=== PATIENT | male | born 1945 | race Caucasian/White ===

== ENCOUNTER 2017-11-23 09:26 | Inpatient (IN) ==
--- NOTE | 2017-11-23 09:47 | Emergency Department Note ---
Disposition Clinical Impression: Acute pancreatitis Qualifiers: Pancreatitis type: unspecified pancreatitis type Acute pancreatitis complication: unspecified Qualified Code(s): K85.90 - Acute pancreatitis without necrosis or infection, unspecified Disposition: Admitted As Inpatient Condition: Good Time of Disposition: 13:24 General Adult HPI - General Chief complaint: ED Abdominal Pain Stated complaint: abd pain/cramps Time Seen by Provider: 11/23/17 09:31 Nursing Notes Reviewed: Yes Vital Signs Reviewed: Yes - History of Present Illness HPI Narrative: Patient complaining of a cramping sensation to his abdomen. Started this morning. Does report intermittent constipation over the past 2-3 months. This is after starting a Weight Watchers diet. Pain Scale: 8 - Related Data Home Medications Medication Instructions Recorded Confirmed Amlodipine Besylate 10 mg PO DAILY 11/23/17 11/23/17 Darifenacin Hydrobromide 15 mg PO DAILY 11/23/17 11/23/17 [Darifenacin ER] Lisinopril-HCTZ 20-12.5 [Prinzide 1 tab PO DAILY 11/23/17 11/23/17 20-12.5] Metoprolol Succinate [Toprol Xl] 50 mg PO DAILY 11/23/17 11/23/17 Omeprazole [PriLOSEC] 40 mg PO DAILY 11/23/17 11/23/17 Tamsulosin [Flomax] 0.8 mg PO DAILY 11/23/17 11/23/17 Allergies Allergy/AdvReac Type Severity Reaction Status Date / Time No Known Allergies Allergy Verified 11/23/17 09:29 All systems ED: reviewed and negative except as stated. Constitutional: Denies: fever, chills ENT ED: Denies: congestion Cardiovascular: Denies: chest pain, palpitations, syncope Respiratory: Denies: cough, dyspnea Gastrointestinal: Reports: abdominal pain, nausea, constipation (Last bowel movement was this morning.). Denies: vomiting, diarrhea, hematemesis, melena, hematochezia Genitourinary: Denies: urgency, dysuria, frequency, hematuria Musculoskeletal: Denies: back pain, neck pain Integumentary: Denies: rash, abrasion Neurological: Denies: headache, weakness Past Medical History - Past Medical History Attestation: Yes The following information was validated with the patient. Source: patient Physical Exam - General Limitations: no limitations General appearance: alert, in no apparent distress - Head Head exam: atraumatic, normocephalic, normal inspection - Eye Eye exam: Present: normal appearance, PERRL, EOMI - ENT ENT exam: normal exam, normal oropharynx, mucous membranes moist - Neck Neck exam: Present: normal inspection, full ROM, trachea midline - Chest Chest inspection: Present: normal inspection, symmetric chest wall rise - Respiratory Respiratory exam: Present: normal lung sounds bilaterally. Absent: respiratory distress, accessory muscle use - Cardiovascular Cardiovascular exam: Present: regular rate, normal rhythm, normal heart sounds - Abdominal Exam Abdominal exam: Present: soft, tenderness (Diffusely), distention (Mild). Absent: guarding, rebound, rigidity, organomegaly - Extremities Exam Extremities exam: Present: normal inspection, full ROM, normal capillary refill. Absent: tenderness, pedal edema - Back Exam Back exam: Present: normal inspection, full ROM. Absent: tenderness - Neurological Exam Neurological exam: Present: alert, oriented X3 - Psychiatric Psychiatric exam: Present: normal affect, normal mood - Skin Skin exam: Present: warm, dry, intact, normal color. Absent: rash, cyanosis Course Course Narrative: Male patient presenting to the emergency room complaining of abdominal cramping that began this morning. Patient states he did have a bowel movement this morning that was hard in nature however was a decent amount. States this did not help with his abdominal pain. Has been on Weight Watchers for the past 23 weeks and states that he has had issues with constipation since then. He does report nausea but denies any vomiting. No fevers or chills. Denies any chest pain or shortness breath. Does report increase in abdominal distention as well as a generalized ache all over his abdomen. On exam his lung sounds are clear heart tones are normal abdomen is mildly distended but not rigid not scaphoid. He does complain of pain to palpation of all of his quadrants. We will get basic lab workup on patient as well as get a CT of patient's abdomen. - Reevaluation(s) Reevaluation #1: Pt has acute pancreatitis. This is shown on CT. Patient also has an elevated lipase. He also has elevated liver enzymes. Patient is resting comfortably. He states that he was still in pain so we added fentanyl as well as Zofran. He does occasionally complain of being "dizzy whenever I did ask him to describe the she states that she just an aching sensation in his abdomen that comes up. He denies any rotational component. He denies feeling of syncope. He is well- appearing we will admit to the hospital. He is agreeable to this. - Consultations Consultation #1: Dr Batres Accepted Pt in stable condition. Time: 11:51 Vital Signs Temperature 97.6 F 11/23/17 09:27 Pulse Rate 54 11/23/17 09:27 Respiratory Rate 16 11/23/17 09:27 Blood Pressure 145/74 11/23/17 09:27 O2 Sat by Pulse Oximetry 93 11/23/17 09:27 Temperature 97.5 F L 11/23/17 12:56 Pulse Rate 58 11/23/17 12:56 Respiratory Rate 16 11/23/17 12:56 Blood Pressure 159/79 11/23/17 12:56 O2 Sat by Pulse Oximetry 96 11/23/17 12:56 Oxygen Delivery Oxygen Delivery Room Air Medical Decision Making - Medical Records Medical records reviewed: Yes I reviewed the patient's medical records. - Lab Data Lab results reviewed: Yes I reviewed the patient's lab results. Result diagrams: 11/23/17 10:00 11/23/17 10:00 Lab Results 11/23/17 11/23/17 11/23/17 Range/Units 10:00 10:00 10:00 WBC 13.8 H (4.3-11.1) K/mcL RBC 4.28 (4.19-5.50) M/mcL Hgb 13.7 (12.9-16.9) g/dL Hct 40.1 (37.5-50.1) % MCV 93.7 (83.0-100.0) fL MCH 32.0 (28.0-33.3) pg MCHC 34.2 (31.6-35.5) g/dL RDW 13.4 (11.5-14.5) % Plt Count 185 (140-400) K/mcL MPV 11.0 (9.4-12.4) fL Immature Gran % 0.4 (0-4) % Seg Neutrophils % 79.3 % Lymphocytes % 11.0 % Monocytes % 8.1 % Eosinophils % 0.8 % Basophils % 0.4 % Neutrophils # 10.9 H (1.6-8.9) K/mcL Lymphocytes # 1.5 (0.6-4.6) K/mcL Monocytes # 1.1 (0.0-1.3) K/mcL Eosinophils # 0.1 (0.0-0.6) K/mcL Basophils # 0.1 (0.0-0.2) K/mcL Sodium 140 (136-145) mEq/L Potassium 4.1 (3.5-5.1) mEq/L Chloride 106 (98-107) mEq/L Carbon Dioxide 27 (23-29) mEq/L BUN 19 (8-23) mg/dL Creatinine 1.10 (0.70-1.30) mg/dL Est GFR ( Amer) > 60 (> 60) Est GFR (Non-Af Amer) > 60 (> 60) BUN/Creatinine Ratio 17 (6-26) Glucose 164 H (70-105) mg/dL Calculated Osmolality 296 (280-300) Lactic Acid 1.1 (0.5-2.2) mmol/L Calcium 8.9 (8.6-10.3) mg/dL Total Bilirubin 0.8 (0.3-1.0) mg/dL Direct Bilirubin 0.5 H (0.0-0.2) mg/dL Indirect Bilirubin 0.3 (0.0-1.2) mg/dL AST 106 H (13-39) Units/L ALT 60 H (7-52) Units/L Alkaline Phosphatase 89 (34-104) Units/L Serum Total Protein 6.4 (6.4-8.9) g/dL Albumin 3.9 (3.5-5.7) g/dL Globulin 2.5 (2.4-3.5) g/dL Albumin/Globulin Ratio 1.6 (1.1-2.2) Lipase > 1800 H (11-82) Units/L Urine Color (Yellow) Urine Clarity (Clear) Urine pH (5.0-8.0) pH Units Ur Specific [place] (1.010-1.025) Urine Protein (Neg-Trace) mg/dL Urine Glucose (UA) (Normal) mg/dL Urine Ketones (Negative) mg/dL Urine Blood (Negative) Urine Nitrite (Negative) Urine Bilirubin (Negative) Urine Urobilinogen (Normal) mg/dL Ur Leukocyte Esterase (Negative) Urine Microscopic RBC (0-3) per hpf Urine Microscopic WBC (0-3) per hpf Ur Squamous Epith Cells (None-Few) per lpf Urine Bacteria (None-Few) per hpf Hyaline Casts (None-Few) per lpf Ur Culture Indicated? (NO) 11/23/17 Range/Units 10:05 WBC (4.3-11.1) K/mcL RBC (4.19-5.50) M/mcL Hgb (12.9-16.9) g/dL Hct (37.5-50.1) % MCV (83.0-100.0) fL MCH (28.0-33.3) pg MCHC (31.6-35.5) g/dL RDW (11.5-14.5) % Plt Count (140-400) K/mcL MPV (9.4-12.4) fL Immature Gran % (0-4) % Seg Neutrophils % % Lymphocytes % % Monocytes % % Eosinophils % % Basophils % % Neutrophils # (1.6-8.9) K/mcL Lymphocytes # (0.6-4.6) K/mcL Monocytes # (0.0-1.3) K/mcL Eosinophils # (0.0-0.6) K/mcL Basophils # (0.0-0.2) K/mcL Sodium (136-145) mEq/L Potassium (3.5-5.1) mEq/L Chloride (98-107) mEq/L Carbon Dioxide (23-29) mEq/L BUN (8-23) mg/dL Creatinine (0.70-1.30) mg/dL Est GFR ( Amer) (> 60) Est GFR (Non-Af Amer) (> 60) BUN/Creatinine Ratio (6-26) Glucose (70-105) mg/dL Calculated Osmolality (280-300) Lactic Acid (0.5-2.2) mmol/L Calcium (8.6-10.3) mg/dL Total Bilirubin (0.3-1.0) mg/dL Direct Bilirubin (0.0-0.2) mg/dL Indirect Bilirubin (0.0-1.2) mg/dL AST (13-39) Units/L ALT (7-52) Units/L Alkaline Phosphatase (34-104) Units/L Serum Total Protein (6.4-8.9) g/dL Albumin (3.5-5.7) g/dL Globulin (2.4-3.5) g/dL Albumin/Globulin Ratio (1.1-2.2) Lipase (11-82) Units/L Urine Color Yellow (Yellow) Urine Clarity Cloudy A (Clear) Urine pH 6.0 (5.0-8.0) pH Units Ur Specific [place] 1.018 (1.010-1.025) Urine Protein Negative (Neg-Trace) mg/dL Urine Glucose (UA) Normal (Normal) mg/dL Urine Ketones Negative (Negative) mg/dL Urine Blood Negative (Negative) Urine Nitrite Negative (Negative) Urine Bilirubin Negative (Negative) Urine Urobilinogen Normal (Normal) mg/dL Ur Leukocyte Esterase Negative (Negative) Urine Microscopic RBC 0-3 (0-3) per hpf Urine Microscopic WBC 0-3 (0-3) per hpf Ur Squamous Epith Cells None Seen (None-Few) per lpf Urine Bacteria Few (None-Few) per hpf Hyaline Casts None Seen (None-Few) per lpf Ur Culture Indicated? NO (NO) - Radiology Data Radiology results reviewed: Yes I reviewed the patient's radiology results. Abdomen/Pelvis CT 11/23/17 09:54 IMPRESSION: 1. Acute pancreatitis with no evidence of pseudocyst formation or pancreatic duct obstruction. Cannot assess for pancreatic necrosis without IV contrast 2. Colonic diverticulosis 3. Prostatic enlargement D/ / Demetris Bryan MD / Demetris Bryan MD Interpreting Provider: Demetris Bryan MD - EKG Data EKG #1 EKG attestation: Yes I reviewed and interpreted this EKG. EKG results narrative: Sinus rhythm at a rate of 52. [place] interval is 166. QRS duration is 94. QT is 441. QTC is 420. Patient is sinus bradycardia. No signs of acute ischemia. No significant change from previous EKG dated 02/08/2007
[2017-11-23 10:24] LABS: Basophils # 0.1 K/mcL (0.0-0.2); Basophils % 0.4 %; Eosinophils # 0.1 K/mcL (0.0-0.6); Eosinophils % 0.8 %; Hematocrit 40.1 % (37.5-50.1); Hemoglobin 13.7 g/dL (12.9-16.9); Immature Granulocytes % 0.4 % (0-4); Lymphocytes # 1.5 K/mcL (0.6-4.6); Mean Corpuscular HGB Conc 34.2 g/dL (31.6-35.5); Mean Corpuscular Volume 93.7 fL (83.0-100.0); Monocytes # 1.1 K/mcL (0.0-1.3); Monocytes % 8.1 %; Neutrophils # 10.9 K/mcL (1.6-8.9); Platelet Count 185 K/mcL (140-400); Red Blood Count 4.28 M/mcL (4.19-5.50); Red Cell Distribution Width 13.4 % (11.5-14.5); Segmented Neutrophils % 79.3 %
[2017-11-23 10:34] LABS: Bilirubin,Urine Negative (Negative); Blood,Urine Negative (Negative); Clarity,Urine Cloudy (Clear); Color,Urine Yellow (Yellow); Glucose,Urine (UA) Normal (Normal); Ketones,Urine Negative (Negative); Leukocyte Esterase,Urine Negative (Negative); Nitrite,Urine Negative (Negative); Protein,Urine Negative (Neg-Trace); Specific Gravity,Urine 1.018 (1.010-1.025); Urobilinogen,Urine Normal (Normal)
[2017-11-23 10:37] LABS: Hyaline Casts,Urine None Seen per lpf (None-Few); RBC,Urine 0-3 per hpf (0-3); Squamous Epithelial Cell,Urine None Seen per lpf (None-Few); WBC,Urine 0-3 per hpf (0-3)
[2017-11-23 10:54] LABS: Bacteria,Urine Few per hpf (None-Few)
[2017-11-23 10:55] LABS: Alanine Aminotransferase 60 Units/L (7-52); Albumin 3.9 g/dL (3.5-5.7); Albumin/Globulin Ratio 1.6 (1.1-2.2); Alkaline Phosphatase 89 Units/L (34-104); Aspartate Amino Transferase 106 Units/L (13-39); BUN/Creatinine Ratio 17 (6-26); Bilirubin,Direct 0.5 mg/dL (0.0-0.2); Bilirubin,Indirect 0.3 mg/dL (0.0-1.2); Bilirubin,Total 0.8 mg/dL (0.3-1.0); Blood Urea Nitrogen 19 mg/dL (8-23); Calcium 8.9 mg/dL (8.6-10.3); Carbon Dioxide 27 mEq/L (23-29); Chloride 106 mEq/L (98-107); Globulin 2.5 g/dL (2.4-3.5); Glucose 164 mg/dL (70-105); Osmolality,Calculated 296 (280-300); Potassium 4.1 mEq/L (3.5-5.1); Sodium 140 mEq/L (136-145); Total Protein 6.4 g/dL (6.4-8.9); eGFR For African Americans > 60 (> 60); eGFR For Non-African Americans > 60 (> 60)
[2017-11-23] MEDS ORDERED: 0.9 % Sodium Chloride 1,000 ML IVC ONE (11:02)
[2017-11-23] MEDS ORDERED: *HR* FentaNYL (PF) 100 MCG/2 ML VIAL IVP ONE (11:05)
[2017-11-23] MEDS ORDERED: Ondansetron 4 MG/2 ML VIAL IVP ONE (11:05)
[2017-11-23 11:11] LABS: Lipase > 1800 Units/L (11-82)
--- NOTE | 2017-11-23 12:48 | Emergency Department Note ---
Disposition Clinical Impression: Acute pancreatitis Clinical Impression: (Ruled Out): Acute alcoholic pancreatitis Disposition: Admitted As Inpatient Time of Disposition: 12:02 Abdominal Pain HPI - General Chief Complaint: ED Abdominal Pain Stated Complaint: abd pain/cramps Time Seen by Provider: 11/23/17 09:31 Nursing Notes Reviewed: Yes Vital Signs Reviewed: Yes - History of Present Illness HPI Narrative: 72-year-old male presents ED because of abdominal pain. He has had pain throughout the morning and complains of a bloated sensation. Pain is mostly upper abdomen. He has issues with constipation recently. No diarrhea. No fevers. No dysuria or hematuria. No chest pain or dyspnea. Last meal was yesterday evening, ate pizza Onset (ago): hour(s) Consistency: constant Location: epigastric Pain Severity: moderate Pain Scale: 0 Quality: fullness, sharp Radiation: none Migration to: no migration Improves with: nothing Worsens with: nothing - Related Data Home Medications Medication Instructions Recorded Confirmed Amlodipine Besylate 10 mg PO DAILY 11/23/17 11/23/17 Darifenacin Hydrobromide 15 mg PO DAILY 11/23/17 11/23/17 [Darifenacin ER] Lisinopril-HCTZ 20-12.5 [Prinzide 1 tab PO DAILY 11/23/17 11/23/17 20-12.5] Metoprolol Succinate [Toprol Xl] 50 mg PO DAILY 11/23/17 11/23/17 Omeprazole [PriLOSEC] 40 mg PO DAILY 11/23/17 11/23/17 Tamsulosin [Flomax] 0.8 mg PO DAILY 11/23/17 11/23/17 Allergies Allergy/AdvReac Type Severity Reaction Status Date / Time No Known Allergies Allergy Verified 11/23/17 09:29 All systems ED: reviewed and negative except as stated. Constitutional: Denies: fever Cardiovascular: Denies: chest pain Respiratory: Denies: dyspnea Gastrointestinal: Reports: abdominal pain, nausea, constipation. Denies: diarrhea Genitourinary: Denies: urgency, dysuria Musculoskeletal: Denies: back pain Abdominal Pain PMH - Past Medical History Medical history: Reports: hypertension Male Surgical History: Reports: non-contributory Psychiatric history: Reports: no psych history - Social History Smoking status: Former smoker Alcohol use: Reports: occasionally Drug use: Reports: none Physical Exam - General Limitations: no limitations - Head Head exam: atraumatic, normocephalic - Eye Eye exam: Present: normal appearance - ENT ENT exam: normal exam, normal oropharynx - Neck Neck exam: Present: normal inspection - Respiratory Respiratory exam: Present: normal lung sounds bilaterally - Cardiovascular Cardiovascular exam: Present: regular rate, normal rhythm - Abdominal Exam Abdominal exam: Present: tenderness Abdominal tenderness: Present: LUQ, epigastrium, moderate - Extremities Exam Extremities exam: Present: normal inspection - Back Exam Back exam: Present: normal inspection - Neurological Exam Neurological exam: Present: alert, oriented X3 - Psychiatric Psychiatric exam: Present: normal affect - Skin Skin exam: Present: warm, dry Course - Reevaluation(s) Reevaluation #1: CT of the abdomen and lab work consistent with acute pancreatiitis. He is kept NPO, treated symptomatically and will be admitted for further treatment and workup. Time: 12:51 Vital Signs Temperature 97.6 F 11/23/17 09:27 Pulse Rate 54 11/23/17 09:27 Respiratory Rate 16 11/23/17 09:27 Blood Pressure 145/74 11/23/17 09:27 O2 Sat by Pulse Oximetry 93 11/23/17 09:27 Temperature 97.6 F 11/23/17 09:54 Pulse Rate 54 11/23/17 09:54 Respiratory Rate 16 11/23/17 12:31 Blood Pressure 156/81 11/23/17 12:31 O2 Sat by Pulse Oximetry 93 11/23/17 09:54 Oxygen Delivery Oxygen Delivery Room Air Abdominal Pain - Lab Data Result diagrams: 11/23/17 10:00 11/23/17 10:00 Lab Results 11/23/17 11/23/17 11/23/17 Range/Units 10:00 10:00 10:00 WBC 13.8 H (4.3-11.1) K/mcL RBC 4.28 (4.19-5.50) M/mcL Hgb 13.7 (12.9-16.9) g/dL Hct 40.1 (37.5-50.1) % MCV 93.7 (83.0-100.0) fL MCH 32.0 (28.0-33.3) pg MCHC 34.2 (31.6-35.5) g/dL RDW 13.4 (11.5-14.5) % Plt Count 185 (140-400) K/mcL MPV 11.0 (9.4-12.4) fL Immature Gran % 0.4 (0-4) % Seg Neutrophils % 79.3 % Lymphocytes % 11.0 % Monocytes % 8.1 % Eosinophils % 0.8 % Basophils % 0.4 % Neutrophils # 10.9 H (1.6-8.9) K/mcL Lymphocytes # 1.5 (0.6-4.6) K/mcL Monocytes # 1.1 (0.0-1.3) K/mcL Eosinophils # 0.1 (0.0-0.6) K/mcL Basophils # 0.1 (0.0-0.2) K/mcL Sodium 140 (136-145) mEq/L Potassium 4.1 (3.5-5.1) mEq/L Chloride 106 (98-107) mEq/L Carbon Dioxide 27 (23-29) mEq/L BUN 19 (8-23) mg/dL Creatinine 1.10 (0.70-1.30) mg/dL Est GFR ( Amer) > 60 (> 60) Est GFR (Non-Af Amer) > 60 (> 60) BUN/Creatinine Ratio 17 (6-26) Glucose 164 H (70-105) mg/dL Calculated Osmolality 296 (280-300) Lactic Acid 1.1 (0.5-2.2) mmol/L Calcium 8.9 (8.6-10.3) mg/dL Total Bilirubin 0.8 (0.3-1.0) mg/dL Direct Bilirubin 0.5 H (0.0-0.2) mg/dL Indirect Bilirubin 0.3 (0.0-1.2) mg/dL AST 106 H (13-39) Units/L ALT 60 H (7-52) Units/L Alkaline Phosphatase 89 (34-104) Units/L Serum Total Protein 6.4 (6.4-8.9) g/dL Albumin 3.9 (3.5-5.7) g/dL Globulin 2.5 (2.4-3.5) g/dL Albumin/Globulin Ratio 1.6 (1.1-2.2) Lipase > 1800 H (11-82) Units/L Urine Color (Yellow) Urine Clarity (Clear) Urine pH (5.0-8.0) pH Units Ur Specific [place] (1.010-1.025) Urine Protein (Neg-Trace) mg/dL Urine Glucose (UA) (Normal) mg/dL Urine Ketones (Negative) mg/dL Urine Blood (Negative) Urine Nitrite (Negative) Urine Bilirubin (Negative) Urine Urobilinogen (Normal) mg/dL Ur Leukocyte Esterase (Negative) Urine Microscopic RBC (0-3) per hpf Urine Microscopic WBC (0-3) per hpf Ur Squamous Epith Cells (None-Few) per lpf Urine Bacteria (None-Few) per hpf Hyaline Casts (None-Few) per lpf Ur Culture Indicated? (NO) 11/23/17 Range/Units 10:05 WBC (4.3-11.1) K/mcL RBC (4.19-5.50) M/mcL Hgb (12.9-16.9) g/dL Hct (37.5-50.1) % MCV (83.0-100.0) fL MCH (28.0-33.3) pg MCHC (31.6-35.5) g/dL RDW (11.5-14.5) % Plt Count (140-400) K/mcL MPV (9.4-12.4) fL Immature Gran % (0-4) % Seg Neutrophils % % Lymphocytes % % Monocytes % % Eosinophils % % Basophils % % Neutrophils # (1.6-8.9) K/mcL Lymphocytes # (0.6-4.6) K/mcL Monocytes # (0.0-1.3) K/mcL Eosinophils # (0.0-0.6) K/mcL Basophils # (0.0-0.2) K/mcL Sodium (136-145) mEq/L Potassium (3.5-5.1) mEq/L Chloride (98-107) mEq/L Carbon Dioxide (23-29) mEq/L BUN (8-23) mg/dL Creatinine (0.70-1.30) mg/dL Est GFR ( Amer) (> 60) Est GFR (Non-Af Amer) (> 60) BUN/Creatinine Ratio (6-26) Glucose (70-105) mg/dL Calculated Osmolality (280-300) Lactic Acid (0.5-2.2) mmol/L Calcium (8.6-10.3) mg/dL Total Bilirubin (0.3-1.0) mg/dL Direct Bilirubin (0.0-0.2) mg/dL Indirect Bilirubin (0.0-1.2) mg/dL AST (13-39) Units/L ALT (7-52) Units/L Alkaline Phosphatase (34-104) Units/L Serum Total Protein (6.4-8.9) g/dL Albumin (3.5-5.7) g/dL Globulin (2.4-3.5) g/dL Albumin/Globulin Ratio (1.1-2.2) Lipase (11-82) Units/L Urine Color Yellow (Yellow) Urine Clarity Cloudy A (Clear) Urine pH 6.0 (5.0-8.0) pH Units Ur Specific [place] 1.018 (1.010-1.025) Urine Protein Negative (Neg-Trace) mg/dL Urine Glucose (UA) Normal (Normal) mg/dL Urine Ketones Negative (Negative) mg/dL Urine Blood Negative (Negative) Urine Nitrite Negative (Negative) Urine Bilirubin Negative (Negative) Urine Urobilinogen Normal (Normal) mg/dL Ur Leukocyte Esterase Negative (Negative) Urine Microscopic RBC 0-3 (0-3) per hpf Urine Microscopic WBC 0-3 (0-3) per hpf Ur Squamous Epith Cells None Seen (None-Few) per lpf Urine Bacteria Few (None-Few) per hpf Hyaline Casts None Seen (None-Few) per lpf Ur Culture Indicated? NO (NO) Attestation Statement - Attestation Attestation: n I examined this patient and my medical decision-making was reviewed with the Resident Physician. I agree with the documented findings, disposition and treatment plan as described except to the extent set forth below.
[2017-11-23] MEDS ORDERED: Naloxone 0.4 MG/ML INJ IVP PRN (13:17)
[2017-11-23] MEDS ORDERED: Ondansetron 4 MG/2 ML VIAL IVP PRN (13:25)
[2017-11-23] MEDS ORDERED: *HR* FentaNYL (PF) 100 MCG/2 ML VIAL IVP PRN (13:26)
[2017-11-23] MEDS ORDERED: 0.9 % Sodium Chloride 1,000 ML IVC SCH (13:30)
--- NOTE | 2017-11-23 13:50 | Internal Med History&Physical ---
Addendum entered and electronically signed by Heaven Vogt 11/23/17 14:14: Original Note: <Heaven Vogt - Last Filed: 11/23/17 13:38> Date of Encounter: 11/23/17 Time of Encounter: 13:38 Internal Medicine - H&P: HPI Chief complaint: Acute Pancreatitis Admitted From: Home Plans for Post Hospital Care: Home History of present illness: Mr. Morgan is a 72 year old male with hx of HTN, appendectomy, enlarged prostate , and tonsillitis. The patient woke up today with generalized abdominal pain that persisted. He indicated that he was driving somewhere else, the abdominal cramping became so intense he pulled over and came into the ED. He indicated that he has never had these problems in the past. He reports that he drinks a glass of wine three times per week. He reported having problems with constipation for the past 23 weeks while he was doing a weight watchers diet. He thinks the increase in protein may have been causing him problems with his digestive system. The CT showed: acute pancreatitis with no evidence of pseudocyst formation or pancreatic duct obstruction, colonic diverticulitis and prostate enlargement. WBC is 13.7, lipase is > 1800. The patient is currently pain-free after a dose of fentanyl in the ED. Patient will remain npo, and maintain IVF's and control pain. Past Med Surg Social Fam HX - Past Medical History Medical history: hypertension Psychiatric history: no psych history - Social History Smoking Status: Former smoker Alcohol use: occasionally Drug use: none Internal Medicine - H&P: Meds Amlodipine Besylate 10 mg PO DAILY 11/23/17 [History] Darifenacin Hydrobromide [Darifenacin ER] 15 mg PO DAILY 11/23/17 [History] Lisinopril-HCTZ 20-12.5 [Prinzide 20-12.5] 1 tab PO DAILY 11/23/17 [History] Metoprolol Succinate [Toprol Xl] 50 mg PO DAILY 11/23/17 [History] Omeprazole [PriLOSEC] 40 mg PO DAILY 11/23/17 [History] Tamsulosin [Flomax] 0.8 mg PO DAILY 11/23/17 [History] 3 Allergy/AdvReac Type Severity Reaction Status Date / Time No Known Allergies Allergy Verified 11/23/17 09:29 All Systems PM: A 10-system review of systems was performed and is negative for pertinent findings except as documented above in the HPI. - Constitutional Constitutional: no chills, no fever(s), no night sweats - EENT Eyes: no change in vision, no discharge, no pain, no photophobia Ears: no ear discharge, no ear pain, no tinnitus Nose, mouth and throat: no dysphagia, no nasal discharge, no neck pain, no sore throat - Cardiovascular Cardiovascular ROS IM: no chest pain, no diaphoresis, no dyspnea, no lightheadedness, no palpitations, no syncope - Respiratory Respiratory: no cough, no dyspnea, no wheezing, no excessive phlegm production - Gastrointestinal Gastrointestinal: abdominal pain (Generalized), constipation, nausea, no diarrhea, no hematemesis, no hematochezia, no melena, no vomiting - Musculoskeletal Musculoskeletal ROS IM: no numbness, no tingling - Integumentary Integumentary IM: no rash, no unusual bruising - Neurological Neurological ROS: no confusion, no convulsions, no focal weakness, no numbness, no tingling, no tremor(s) - Hematologic/Lymphatic Hematologic/Lymphatic: no easy bruising - Constitutional Vitals: Temp Pulse Resp BP Pulse Ox 97.5 F L 58 16 159/79 96 11/23/17 12:56 11/23/17 12:56 11/23/17 12:56 11/23/17 12:56 11/23/17 12:56 General appearance: Present: A&O X 3, loss of weight (Weight Watchers), answers questions appropriately - Head Head exam: Present: atraumatic, normocephalic - Eye Eye exam: Present: PERRL, conjuntiva pink, sclera anicteric Pupils: Present: PERRL - Neck Neck exam general surgery: Present: supple, trachea midline. Absent: lymphadenopathy - Respiratory Respiratory exam: Present: CTAB. Absent: accessory muscle use, rales, rhonchi, wheezes - Cardiovascular Cardiovascular exam: Present: RRR, +S1, +S2. Absent: diastolic murmur, gallop, rubs, systolic murmur - GI/Abdominal GI/Abdominal exam: Present: normal bowel sounds, soft, no peritoneal signs. Absent: distended, tenderness - Extremities Exam Extremities exam: Present: warm, radial pulses palpable and symmetrical. Absent : calf tenderness, cyanotic, pedal edema - Neurological Exam Neurological exam: Present: CN II-XII intact, oriented X3, no focal deficits. Absent: pronater drift, facial droop, speech deficit - Skin Skin exam: Present: dry, intact Internal Med - H&P Results - Labs CBC & Chem 7: 11/23/17 10:00 11/23/17 10:00 - Assessment and plan (1) Acute pancreatitis Current Visit: Yes Status: Acute Assessment and plan: Pancreatitis etiology is unknown. The patient indicated recent changes in diet, which includes an increase in protein. He also reports drinking 3 glasses of wine daily. Continue IVF's Pain control- moderate pain-Toradol 15 mg iv q6h prn Severe pain-fentanyl iv q6h prn NPO Monitor daily labs Qualifiers: Pancreatitis type: unspecified pancreatitis type Acute pancreatitis complication: unspecified Qualified Code(s): K85.90 - Acute pancreatitis without necrosis or infection, unspecified (2) Hypertension Current Visit: Yes Status: Chronic Assessment and plan: Bp is uncontrolled Will continue home bp meds in am Hydralazine 10 mg ivp q6h prn systolic bp gt 140 Qualifiers: Hypertension type: essential hypertension Qualified Code(s): I10 - Essential (primary) hypertension - Time Spent With Patient Total time spent is greater than 50% in coordination of care (as documented) at patient's floor/unit and/or counseling patient: 25 - 35 minutes <Rosie Batres - Last Filed: 11/23/17 15:38> Date of Encounter: 11/23/17 Time of Encounter: 15:00 Internal Medicine - H&P: HPI History of present illness: Mr. Morgan is a 72 year old male All Systems PM: A 10-system review of systems was performed and is negative for pertinent findings except as documented above in the HPI. - Constitutional Vitals: Temp Pulse Resp BP Pulse Ox 97.5 F L 58 16 159/79 96 11/23/17 12:56 11/23/17 12:56 11/23/17 12:56 11/23/17 12:56 11/23/17 12:56 Internal Med - H&P Results - Labs CBC & Chem 7: 11/23/17 10:00 11/23/17 10:00 - Attending Attestation I examined this patient and my medical decision-making was reviewed with the Nurse Practitioner, Heaven Vogt. I agree with the documented findings, disposition and treatment plan as described with any changes as documented below. 72-year-old male patient presenting with abdominal pain. Has acute pancreatitis based on clinical findings and CT scan. Abdominal pain on examination. Also has been having constipation. Heart sounds are normal. Breath sounds are normal. Lipase is severely elevated. Acute pancreatitis: Etiology uncertain. Drinks about 5 glasses of wine per week. Not on any statins. We will get ultrasound of the abdomen. IV fluids. Keep nothing by mouth. Pain control with narcotics. Monitor urine output. Monitor basic panel. Moderate risk for complications with Essential hypertension: Continue home medications. Constipation.: Place patient on laxatives. - Assessment and plan (1) Acute pancreatitis Current Visit: Yes Status: Acute Qualifiers: Pancreatitis type: unspecified pancreatitis type Acute pancreatitis complication: unspecified Qualified Code(s): K85.90 - Acute pancreatitis without necrosis or infection, unspecified (2) Hypertension Current Visit: Yes Status: Chronic Qualifiers: Hypertension type: essential hypertension Qualified Code(s): I10 - Essential (primary) hypertension - Time Spent With Patient Total time spent is greater than 50% in coordination of care (as documented) at patient's floor/unit and/or counseling patient:
[2017-11-23] MEDS: 0.9 % Sodium Chloride 1,000 ML IVC SCH ×2 (16:19→23:12)
[2017-11-23] MEDS: Ketorolac 15 MG/ML VIAL IVP PRN ×2 (16:19→21:56)
[2017-11-23] MEDS: *HR* Heparin 5,000 UNIT/ML VIAL SQ SCH (21:54)
[2017-11-24] MEDS: *HR* Heparin 5,000 UNIT/ML VIAL SQ SCH ×2 (05:13→15:26)
[2017-11-24] MEDS: Ketorolac 15 MG/ML VIAL IVP PRN ×2 (05:19→19:00)
[2017-11-24 06:13] LABS: Basophils % 0.4 %; Eosinophils # 0.3 K/mcL (0.0-0.6); Eosinophils % 2.8 %; Hematocrit 37.5 % (37.5-50.1); Hemoglobin 12.8 g/dL (12.9-16.9); Immature Granulocytes % 0.3 % (0-4); Lymphocytes # 1.6 K/mcL (0.6-4.6); Lymphocytes % 18.1 %; Mean Corpuscular HGB Conc 34.1 g/dL (31.6-35.5); Mean Corpuscular Hemoglobin 31.9 pg (28.0-33.3); Mean Corpuscular Volume 93.5 fL (83.0-100.0); Mean Platelet Volume 11.5 fL (9.4-12.4); Monocytes % 11.4 %; Neutrophils # 6.1 K/mcL (1.6-8.9); Platelet Count 167 K/mcL (140-400); Red Blood Count 4.01 M/mcL (4.19-5.50); Red Cell Distribution Width 13.5 % (11.5-14.5)
[2017-11-24 06:30] LABS: BUN/Creatinine Ratio 16 (6-26); Blood Urea Nitrogen 12 mg/dL (8-23); Calcium 8.5 mg/dL (8.6-10.3); Carbon Dioxide 27 mEq/L (23-29); Chloride 108 mEq/L (98-107); Glucose 101 mg/dL (70-105); Osmolality,Calculated 290 (280-300); Potassium 3.5 mEq/L (3.5-5.1); Sodium 140 mEq/L (136-145); eGFR For African Americans > 60 (> 60); eGFR For Non-African Americans > 60 (> 60)
[2017-11-24 06:31] LABS: Amylase 239 Units/L (29-103); Lipase 225 Units/L (11-82)
[2017-11-24] MEDS: 0.9 % Sodium Chloride 1,000 ML IVC SCH ×2 (06:37→17:59)
[2017-11-24] MEDS ORDERED: Metoprolol XL (24 HR) Succ 50 MG TAB.ER.24H PO SCH (09:00)
[2017-11-24] MEDS ORDERED: amLODIPine 5 MG TABLET PO SCH (09:00)
[2017-11-24] MEDS ORDERED: Lisinopril-HCTZ 20-12.5mg TABLET PO SCH ×2 (09:00→17:00)
[2017-11-24 15:32] VITALS: BP 156/69
--- NOTE | 2017-11-24 18:11 | Discharge Summary ---
- NOTES TO OUTPATIENT PROVIDER Notes to Outpatient Provider: Pt admitted with acute pancreatitis. Had no gallstones on US but some inflammation. HIDA neg for acute process but appears to have chronic cholecystisis. Clinically improved and tolerated some diet. To follow up with PCP in [place]. Date of Encounter: 11/24/17 Time of Encounter: 18:07 - Discharge Diagnosis (1) Acute pancreatitis Priority: Primary Status: Resolved Qualifiers: Pancreatitis type: biliary Acute pancreatitis complication: no infection or necrosis Qualified Code(s): K85.10 - Biliary acute pancreatitis without necrosis or infection (2) Chronic cholecystitis without calculus Priority: Secondary Status: Chronic (3) Hypertension Priority: Secondary Status: Chronic Qualifiers: Hypertension type: essential hypertension Qualified Code(s): I10 - Essential (primary) hypertension Hospital course: Mr. Morgan is a 72 year old male with hx of HTN presented to ED with severe abdominal pain. He was found to have acute pancreatitis and admitted. Mr Mitchell was admitted to med surg. He was made NPO and given IV fluids and pain meds. He had gradual improvement of his symptoms overnight. In ther morning he had gallbladder US which did not show stones but some gallbladder inflammation. His lipase improved and he was hungry. He underwent HIDA scan which did not show acute cholecystitis but did show chronic cholecystitis. He is able to tolerate some PO diet. He is afebrile and ready for discharge to follow up with PCP next week. He was advised to return or go to [place] if returns. He was admitted inpatient but has improved quickly and will be discharged after one midnight. Discharge discussed with: patient - Time Spent with Patient Total time spent providing and/or coordinating discharge services: 41min - Discharge Medications Prescriptions: HYDROcodone/Acet 5/325 mg [[place] 5-325 mg] 1 tab PO Q6H PRN 5 Days #20 tab PRN Reason: Pain Home Medications: Amlodipine Besylate 10 mg PO DAILY 11/23/17 [History] Darifenacin Hydrobromide [Darifenacin ER] 15 mg PO DAILY 11/23/17 [History] Lisinopril-HCTZ 20-12.5 [Prinzide 20-12.5] 1 tab PO DAILY 11/23/17 [History] Metoprolol Succinate [Toprol Xl] 50 mg PO DAILY 11/23/17 [History] Omeprazole [PriLOSEC] 40 mg PO DAILY 11/23/17 [History] Tamsulosin [Flomax] 0.4 mg PO BID 11/23/17 [History] HYDROcodone/Acet 5/325 mg [[place] 5-325 mg] 1 tab PO Q6H PRN 5 Days #20 tab 11/24 [Rx] Allergies/Adverse Reactions: 3 Allergy/AdvReac Type Severity Reaction Status Date / Time No Known Allergies Allergy Verified 11/23/17 09:29 Date of admission: 11/23/17 13:34 Primary care physician: Evaristo Wang, Discharging clinician: Don Fournier Anticipated date of discharge: 11/24/17 - Constitutional Vitals: Temp Pulse Resp BP Pulse Ox 97.6 F 55 16 156/69 94 11/24/17 15:25 11/24/17 15:25 11/24/17 15:25 11/24/17 15:25 11/24/17 15:25 General appearance: Present: A&O X 3, loss of weight (Weight Watchers), answers questions appropriately - Head Head exam: Present: normocephalic - Eye Eye exam: Present: conjuntiva pink - ENT ENT exam: Present: mucous membranes dry, normal external ear exam - Respiratory Respiratory exam: Present: CTAB. Absent: rhonchi, wheezes - Cardiovascular Cardiovascular exam: Present: RRR. Absent: tachycardia - GI/Abdominal GI/Abdominal exam: Present: soft, tenderness, no peritoneal signs - Extremities Exam Extremities exam: Present: warm. Absent: tenderness - Neurological Exam Neurological exam: Present: alert, oriented X3, no focal deficits - Skin Skin exam: Present: dry, warm - Patient Status Disposition: Home, Self-Care Condition: Good Functional capacity at discharge: independent ambulation Overall status at discharge: patient is progressing back to baseline - Discharge Instructions Follow Up With: Evaristo Wang MD [Primary Care Provider] - - Diet and Activity Activity: increase activity as tolerated Diet: advance to your usual diet, low fat, low cholesterol
--- NOTE | 2017-11-27 06:31 | Electrocardiograph Report ---
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
== END 2017-11-24 19:11 | disposition home or self-care (01) | DRG 440 ==
LOC: 3ANU 09:26 → EMEROO 09:26 → 3ANU 12:39 → SUATTDRO 13:34
PROVIDERS: ADMIT Internal Medicine; ATTEND Internal Medicine